=== PATIENT | female | born 1950 | race Caucasian/White ===

== ENCOUNTER 2018-02-23 23:29 | Inpatient (IN) ==
[2018-02-23] MEDS ORDERED: VANCOMYCIN INJ 1,000 MG in SODIUM CHLORIDE 0.9% 250 ML IV STA (23:51)
[2018-02-23] MEDS ORDERED: ALBUTEROL/IPRATROPIUM 3 ML NEB RESP TX STA (23:51)
[2018-02-23] MEDS ORDERED: SODIUM CHLORIDE 0.9% 500 ML IV STA (23:51)
[2018-02-23] MEDS ORDERED: MORPHINE 4 MG/1 ML VIAL IV STA (23:51)
[2018-02-23] MEDS ORDERED: ONDANSETRON 4 MG/2 ML VIAL IV STA (23:51)
[2018-02-23] MEDS ORDERED: VANCOMYCIN 1,000 MG VIAL ONE (23:58)
[2018-02-24] MEDS ORDERED: VANCOMYCIN INJ 1,000 MG in SODIUM CHLORIDE 0.9% 250 ML IV STA (00:21)
[2018-02-24 00:37] LABS: Basophils % 0.3 % (0.0-0.8); Eosinophils # 0.5 10*3/uL (0.0-0.87); Eosinophils % 5.9 % (0.00-10.9); Hematocrit 31.7 VOL% (35.7-47.0); Hemoglobin 10.2 GM/DL (12.0-16.0); Immature Granulocytes % 0.3 %; Immature Granulocytes Absolute 0.03 #; Lymphocytes % 22.6 % (21.3-54.2); Mean Corpuscular HGB Conc 32.2 GM/DL (32-36); Mean Corpuscular Hemoglobin 28 PG (27-34); Mean Corpuscular Volume 87.3 FL (87-102); Mean Platelet Volume 10.1 FL (9.6-12.0); Monocytes # 0.7 10*3/uL (0.11-0.8); Monocytes % 8.1 % (1.7-12.7); Neutrophils # 5.4 10*3/uL (1.4-7.4); Neutrophils % 62.8 % (38.7-73.9); Platelet Count 267 T/CUMM (130-400); Red Blood Count 3.63 MC/CUMM (3.8-5.5); Red Cell Distribution Width 13.5 % (9.3-17.3); White Blood Count 8.7 T/CUMM (4-12)
[2018-02-24 00:44] LABS: PT Patient Result 10.4 SECS
[2018-02-24 00:48] LABS: Apearance,Urine CLEAR (Clear); Bilirubin,Urine Negative (Negative); Blood, Urine Negative (Negative); Glucose,Urine (UA) Negative (Negative); Ketones,Urine 5 mg/dL (Negative); Nitrite,Urine Negative (Negative); Protein,Urine Negative; Urine Color Straw (Yellow); Urine Specific Gravity 1.013 (1.001-1.035); Urine Urobilinogen < 2.0 EU/DL (0.2-1.0); WBC,Urine <1 /HPF (0-6)
[2018-02-24 00:58] LABS: Albumin 2.7 G/DL (3.4-5.0); Bilirubin,Total 0.5 MG/DL (0.2-1.0); Calcium 8.2 MG/DL (8.5-10.1); Lactic Acid 0.9 MMOL/L (0.4-2.0); Osmolality,Calculated 278.3 MOS/KG (273-304); Potassium 3.1 MMOL/L (3.5-5.1); Total Protein 6.4 G/DL (6.4-8.3)
[2018-02-24] MEDS ORDERED: HYDROmorphone 2 MG/1 ML VIAL ONE (02:26)
[2018-02-24] MEDS ORDERED: HYDROmorphone 2 MG/1 ML VIAL IV STA (02:30)
[2018-02-24] MEDS ORDERED: ONDANSETRON 4 MG/2 ML VIAL IV STA (02:30)
[2018-02-24] MEDS ORDERED: ONDANSETRON 4 MG/2 ML VIAL IV PRN (04:48)
[2018-02-24] MEDS ORDERED: MAGNESIUM SULF RIDER 4 GM in PREMIX 1 EACH IV PRN (04:48)
[2018-02-24] MEDS ORDERED: ALBUTEROL 2.5 MG/3 ML NEB RESP TX PRN (04:48)
[2018-02-24] MEDS ORDERED: MAGNESIUM SULF RIDER 2 GM in PREMIX 1 EACH IV PRN (04:48)
[2018-02-24] MEDS ORDERED: HYDROmorphone 2 MG/1 ML VIAL IV PRN (04:48)
[2018-02-24] MEDS ORDERED: ACETAMINOPHEN 325 MG TABLET PO PRN (04:48)
[2018-02-24] MEDS: AZTREONAM 2,000 MG in SODIUM CHLORIDE 0.9% 100 ML IV SCH ×3 (05:37→19:06)
[2018-02-24 06:44] LABS: Basophils % 0.4 % (0.0-0.8); Eosinophils # 0.5 10*3/uL (0.0-0.87); Eosinophils % 4.9 % (0.00-10.9); Hematocrit 29.9 VOL% (35.7-47.0); Hemoglobin 9.6 GM/DL (12.0-16.0); Immature Granulocytes % 0.3 %; Immature Granulocytes Absolute 0.03 #; Lymphocytes # 1.3 10*3/uL (1.4-4.0); Lymphocytes % 11.7 % (21.3-54.2); Mean Corpuscular HGB Conc 32.1 GM/DL (32-36); Mean Corpuscular Hemoglobin 29 PG (27-34); Mean Corpuscular Volume 89.3 FL (87-102); Monocytes # 1.2 10*3/uL (0.11-0.8); Monocytes % 11.1 % (1.7-12.7); Neutrophils # 7.8 10*3/uL (1.4-7.4); Neutrophils % 71.6 % (38.7-73.9); Platelet Count 268 T/CUMM (130-400); Red Blood Count 3.35 MC/CUMM (3.8-5.5); Red Cell Distribution Width 13.8 % (9.3-17.3); White Blood Count 10.9 T/CUMM (4-12)
[2018-02-24 07:11] LABS: Calcium 7.8 MG/DL (8.5-10.1); Osmolality,Calculated 278.4 MOS/KG (273-304); Potassium 3.6 MMOL/L (3.5-5.1)
[2018-02-24] MEDS: ALBUTEROL/IPRATROPIUM 3 ML NEB RESP TX SCH ×3 (07:58→19:53)
[2018-02-24] MEDS ORDERED: INFLUENZA VIRUS VACCINE 0.5 ML SYRINGE IM ONE (09:00)
[2018-02-24] MEDS: methylPREDNISolone SOD SUC 125 MG/2 ML VIAL IV SCH ×2 (09:03→17:56)
[2018-02-24] MEDS: DILTIAZEM CD 120 MG CAPSULE PO SCH (09:04)
[2018-02-24] MEDS: hydroCHLOROthiazide 25 MG TABLET PO SCH (09:04)
[2018-02-24] MEDS: HEPARIN 5,000 UNIT/1 ML VIAL SUBCUT SCH ×2 (09:04→17:56)
[2018-02-24] MEDS: MULTIVITAMIN (CENTRUM) TABLET PO SCH (09:04)
[2018-02-24] MEDS: FUROSEMIDE 20 MG TABLET PO SCH (09:04)
[2018-02-24] MEDS: PANTOPRAZOLE 40 MG TABLET PO SCH ×2 (09:05→20:44)
[2018-02-24] MEDS: POTASSIUM CHLORIDE 20 MEQ TABLET PO PRN ×2 (09:13→12:15)
[2018-02-24] MEDS: VANCOMYCIN INJ 1,250 MG in SODIUM CHLORIDE 0.9% 250 ML IV SCH (15:29)
[2018-02-24] MEDS ORDERED: LEVOFLOXACIN INJ 750 MG in PREMIX 1 EACH IV SCH (21:00)
[2018-02-24] MEDS ORDERED: ESCITALOPRAM 10 MG TABLET PO SCH (21:00)
[2018-02-25] MEDS: VANCOMYCIN INJ 1,250 MG in SODIUM CHLORIDE 0.9% 250 ML IV SCH ×2 (01:02→11:26)
[2018-02-25] MEDS: methylPREDNISolone SOD SUC 125 MG/2 ML VIAL IV SCH ×2 (01:02→09:05)
[2018-02-25] MEDS: AZTREONAM 2,000 MG in SODIUM CHLORIDE 0.9% 100 ML IV SCH ×3 (01:03→10:38)
[2018-02-25] MEDS: HEPARIN 5,000 UNIT/1 ML VIAL SUBCUT SCH ×2 (01:03→09:06)
[2018-02-25] MEDS: ALBUTEROL/IPRATROPIUM 3 ML NEB RESP TX SCH ×3 (01:48→13:45)
[2018-02-25] MEDS: hydroCHLOROthiazide 25 MG TABLET PO SCH (09:05)
[2018-02-25] MEDS: PANTOPRAZOLE 40 MG TABLET PO SCH (09:05)
[2018-02-25] MEDS: MULTIVITAMIN (CENTRUM) TABLET PO SCH (09:05)
[2018-02-25] MEDS: DILTIAZEM CD 120 MG CAPSULE PO SCH (09:05)
[2018-02-25] MEDS: FUROSEMIDE 20 MG TABLET PO SCH (09:05)
[2018-02-25] MEDS ORDERED: APIXABAN 5 MG TABLET PO SCH (12:00)
[2018-02-25 12:32] VITALS: BP 127/68
== END 2018-02-25 13:43 | disposition home health service (06) | DRG 300 ==
LOC: EDUNIT# → N.ED 23:29 → N.EDINP 02-24 03:07 → N.5E 02-24 03:38
PROVIDERS: ADMIT Internal Medicine; ATTEND Internal Medicine